=== PATIENT | male | born 1955 | race Caucasian/White ===

== ENCOUNTER 2018-11-25 13:37 | Emergency (ER) | payer BC ==
--- OUTSIDE RECORDS SUMMARY | 2018-11-25 13:39 | XMS REPORT | Clinical Summary ---
:1955 Author Organization [facility] Address [address] [place] [address] Care Team Providers Name Role Phone Brennan Groves MD Primary Care Provider Unavailable Allergies No Known Allergies Medications Medication Sig Dispensed Refills Start Date End Date Status amlodipine-benazepril Take 1 capsule 2 02/12/2016 Active (LOTREL) 10-20 mg per by mouth once capsule daily. hydrochlorothiazide Take 12.5 mg 2 02/12/2016 Active (MICROZIDE) 12.5 mg by mouth once capsule daily. metoprolol succinate XL Take 200 mg by 2 02/12/2016 Active (TOPROL-XL) 200 MG 24 hr mouth once tablet daily. dapagliflozin (FARXIGA) 10 Take 10 mg by 0 Active mg tablet mouth daily. DULAGLUTIDE (TRULICITY Inject under 0 Active SUBQ) the skin once a week. NON FORMULARY daily. Mens 0 Active alive SAW PALMETTO XTR/ZINC Take by mouth. 0 Active PICOLIN (SAW PALMETTO EXTRACT, W-ZINC, ORAL) ASCORBATE CALCIUM (VITAMIN Take by mouth. 0 Active C ORAL) ERGOCALCIFEROL, VITAMIN Take by mouth. 0 Active D2, (VITAMIN D2 ORAL) ACETAMINOPHEN (TYLENOL Take by mouth. 0 Active ORAL) Active Problems Problem Noted Date Multinodular goiter 05/27/2017 Social History Tobacco Use Types Packs/Day Years Used Date Never Smoker Smokeless Tobacco: Never Used Alcohol Use Drinks/Week oz/Week Comments Yes ocassionally Sex Assigned at Date Recorded Not on file Job Start Date Occupation Industry Not on file Not on file Not on file Travel History Travel Start Travel End No recent travel history available. Last Filed Vital Signs Not on file Plan of Treatment Health Maintenance Due Date Last Done Comments COLON CANCER SCREENING 2005 SHINGLES VACCINES (#1) 2005 INFLUENZA VACCINE 03/01/2019 Results Not on fileafter 11/24/2017 Insurance Payer Benefit Plan / Group Subscriber ID Type Phone Address BCBS BCBS CHOICE PPO/F[employer]ERAL EMPL PPO xxxxxxxxxxxxxxx PPO ([place]) [place] [address] Advance Directives Patient has advance care planning documents on file. For more information, please contact:Cordell Brown[address] [place] [phone]
[2018-11-25 14:37] LABS: Absolute Lymphocytes (CBC) 1.5 K/uL (0.7-4.9); Absolute Monocytes 1.3 K/uL (0.1-1.3); Absolute Neutrophil 5.9 K/uL (1.8-8.0); Basophils % 0.5 % (0-1.3); Eosinophils % 4.4 % (0-4.4); Hematocrit 46.6 % (39.6-49.0); Lymphocytes % 16.2 % (15.3-44.8); MPV 9.5 fL (7.6-11.3); RBC Red Blood Cell Count 5.39 M/uL (4.33-5.43)
[2018-11-25 14:48] LABS: Albumin 3.4 g/dL (3.4-5.0); Bilirubin Direct 0.2 mg/dL (0-0.2); Bilirubin Total 0.7 mg/dL (0.2-1.0); Potassium 3.5 mmol/L (3.5-5.1); Protein, Total 7.3 g/dL (6.4-8.2)
--- NOTE | 2018-11-25 16:49 | RAD REPORT ---
EXAM DESCRIPTION: CT - Abdomen Pelvis W Contrast - 11/25/2018 4:14 pm CLINICAL HISTORY: Abdominal pain. Diarrhea COMPARISON: None. TECHNIQUE: Computed axial tomography of the abdomen and pelvis was obtained. 100 cc Isovue-300 is ad ministered intravenously. Oral contrast was given. All CT scans are performed using dose optimization technique as appropriate and may include automated exposure control or mA/KV adjustment according to patient size. FINDINGS: Fatty liver The Spleen, pancreas, adrenals and right kidney appear unremarkable. The left kidney is small. It demonstrates opacification of contrast. This may be congenital anomaly The appendix is normal caliber. There is no evidence of diverticulitis The wall of a loop of proximal ileum/ distal jejunum is thickened. Mild dilatation of several small b owel loops. Mid and distal ileum normal caliber. Small amount of ascites IMPRESSION: Thickening of the wall of a loop of distal jejunum/proximal ileum probably indicating ei ther infection or inflammation. Mild small bowel dilatation probably representing an ileus. Partial small bowel obstruction although possible is considered less likely. If patient's symptoms persist followup abdominal plain film serie s would be recommended
--- NOTE | 2018-11-25 17:22 | EDPHYS ---
Physician Documentation [facility] Name: Juan Cruz Age: 63 yrs Sex: Male : 1955 Arrival Date: 11/25/2018 Time: 13:39 Bed 23 Private MD: ED Physician Saud Mckay HPI: 11/25 14:27 This 63 yrs old Male presents to ER via Ambulatory with complaints of kb Abdominal Pain. 14:27 The patient presents with abdominal pain in the left upper quadrant. Onset: The kb symptoms/episode began/occurred 4 day(s) ago. The symptoms do not radiate. Associated signs and symptoms: Pertinent positives: diarrhea, fever, nausea. The symptoms are described as constant. Modifying factors: The symptoms are alleviated by nothing, the symptoms are aggravated by nothing. Severity of pain: At its worst the pain was moderate in the emergency department the pain is unchanged. The patient has not experienced similar symptoms in the past. The patient has been recently seen at an urgent care, for similar complaints, and was sent to the [facility] Emergency Department for further evaluation. Pt reports abd pain, diarrhea, nausea and low grade fever since Tuesday. States he didn't get better so he went to to get checked out and they sent him here. Historical: - Allergies: 13:46 No Known Allergies; la1 - Home Meds: 13:46 Farxiga 5 mg oral tab 1 tab once daily [Active]; amlodipine-benazepril oral oral la1 [Active]; - PMHx: 13:46 Diabetes - NIDDM; Hypertension; la1 - PSHx: 13:46 Thyroidectomy; Cholecystectomy; la1 - Immunization history:: Adult Immunizations up to date. - Social history:: Smoking status: Patient/guardian denies using tobacco. - Ebola Screening: : No symptoms or risks identified at this time. ROS: 14:23 Cardiovascular: Negative for chest pain, palpitations, and edema, Respiratory: Negative kb for shortness of breath, cough, wheezing, and pleuritic chest pain, Back: Negative for injury and pain, : Negative for injury, bleeding, discharge, and swelling, MS/Extremity: Negative for injury and deformity, Skin: Negative for injury, rash, and discoloration, Neuro: Negative for headache, weakness, numbness, tingling, and seizure. 14:23 Constitutional: Positive for fever. 14:23 Abdomen/GI: Positive for abdominal pain, nausea, diarrhea, Negative for vomiting. Exam: 14:26 Constitutional: This is a well developed, well nourished patient who is awake, alert, kb and in no acute distress. Head/Face: Normocephalic, atraumatic. Chest/axilla: Normal chest wall appearance and motion. Nontender with no deformity. No lesions are appreciated. Cardiovascular: Regular rate and rhythm with a normal S1 and S2. No gallops, murmurs, or rubs. Normal PMI, no JVD. No pulse deficits. Respiratory: Lungs have equal breath sounds bilaterally, clear to auscultation and percussion. No rales, rhonchi or wheezes noted. No increased work of breathing, no retractions or nasal flaring. Back: No spinal tenderness. No costovertebral tenderness. Full range of motion. Skin: Warm, dry with normal turgor. Normal color with no rashes, no lesions, and no evidence of cellulitis. MS/ Extremity: Pulses equal, no cyanosis. Neurovascular intact. Full, normal range of motion. Neuro: Awake and alert, GCS 15, oriented to person, place, time, and situation. Cranial nerves II-XII grossly intact. Motor strength 5/5 in all extremities. Sensory grossly intact. Cerebellar exam normal. Normal gait. 14:26 Abdomen/GI: Inspection: abdomen appears normal, Bowel sounds: normal, in all quadrants, Palpation: soft, in all quadrants, mild abdominal tenderness, in the right lower quadrant and left lower quadrant, moderate abdominal tenderness, in the right upper quadrant and left upper quadrant. Vital Signs: 13:46 BP 117 / 81; Pulse 89; Resp 16; Temp 97.8; Pulse Ox 98% on R/A; Weight 104.33 kg; la1 Height 5 ft. 11 in. (180.34 cm); Pain 4/10; 16:53 BP 130 / 77; Pulse 80; Resp 17; Pulse Ox 99% on R/A; aj 13:46 Body Mass Index 32.08 (104.33 kg, 180.34 cm) la1 MDM: 13:48 Patient medically screened. 14:23 Data reviewed: vital signs, nurses notes. Data interpreted: Pulse oximetry: on room air kb is 98 %. Interpretation: normal. 17:16 Counseling: I had a detailed discussion with the patient and/or guardian regarding: the kb historical points, exam findings, and any diagnostic results supporting the discharge/admit diagnosis, lab results, radiology results, the need for outpatient follow up, a family practitioner, a general surgeon, a landfill attendant, to return to the emergency department if symptoms worsen or persist or if there are any questions or concerns that arise at home. Physician consultation: Dora Kwon MD was contacted at 17:18, in the emergency department to see patient at 17:18. Physician consultation: Jairo Ramires MD was contacted at 17:18, reviewed pt's CT scan. Special discussion: Based on the patient's Hx, exam, and Dx evaluation, there is no indication for emergent surgery or inpatient Tx. It is understood by the patient/guardian that if the Sx's persist or worsen they need to return immediately for re-evaluation. ED course: Pt does not want to be admitted. Dr Kwon and Dr Ramires discussed pt's condition and diagnostics. Dr Ramires does not see a SBO. Both agree that pt can be discharged to follow up with PCP. Will prescribe antibiotics and pt will take OTC laxatives. . 17:22 ED course: Pt does not want to take Cipro. Will prescribe Flagyl only.. kb 11/25 13:48 Order name: Basic Metabolic Panel; Complete Time: 14:52 kb 11/25 13:48 Order name: CBC with Diff; Complete Time: 14:52 kb 11/25 13:48 Order name: Hepatic Function; Complete Time: 14:52 kb 11/25 13:48 Order name: Lipase; Complete Time: 14:52 kb 11/25 13:48 Order name: CT Abd/Pelvis - W/Contrast; Complete Time: 16:52 kb 11/25 17:25 Order name: Urine Dipstick--Ancillary (enter results) eb 11/25 13:48 Order name: IV Saline Lock; Complete Time: 14:21 kb 11/25 13:48 Order name: Labs collected and sent; Complete Time: 14:21 kb Administered Medications: 17:30 Drug: Flagyl 500 mg Route: PO; aj 17:30 Follow up: Response: Medication administered at discharge. aj Disposition: 17:48 Co-signature as Attending Physician, Suad Mckay MD. rn Disposition: 11/25/18 17:22 Discharged to Home. Impression: Constipation, Generalized abdominal pain. - Condition is Stable. - Discharge Instructions: Constipation, Adult, [id number], Abdominal Pain, Adult, [id number]. - Prescriptions for Flagyl 500 mg Oral Tablet - take 1 tablet by ORAL route every 8 hours for 7 days; 21 tablet. - Medication Reconciliation Form, Thank You Letter, Antibiotic Education, Prescription Opioid Use form. - Follow up: Emergency Department; When: As needed; Reason: Worsening of condition. Follow up: Private Physician; When: 2 - 3 days; Reason: Recheck today's complaints, Continuance of care, Re-evaluation by your physician. Signatures: Dispatcher [employer] EDMS Rachael Alvarez, ABHI-C HOME [facility] LPN-Gardenia Haas RN Saud Nazario MD MD rn Attema, Lee, RN RN la1 Corrections: (The following items were deleted from the chart) 17:35 17:22 11/25/2018 17:22 Discharged to Home. Impression: Constipation; Generalized aj abdominal pain. Condition is Stable. Forms are Medication Reconciliation Form, Thank You Letter, Antibiotic Education, Prescription Opioid Use. Follow up: Emergency Department; When: As needed; Reason: Worsening of condition. Follow up: Private Physician; When: 2 - 3 days; Reason: Recheck today's complaints, Continuance of care, Re-evaluation by your physician. kb
--- NOTE | 2018-11-25 17:22 | ER ---
Nurse's Notes [facility] Name: Juan Cruz Age: 63 yrs Sex: Male : 1955 Arrival Date: 11/25/2018 Time: 13:39 Bed 23 Private MD: Diagnosis: Constipation;Generalized abdominal pain Presentation: 11/25 13:43 Presenting complaint: Patient states: Started with upper abd pain and diarrhea on la1 Tuesday, went to urgent care and they said I might have a blockage, pt denies vomiting. Transition of care: patient was not received from another setting of care. Onset of symptoms was November 25, 2018. Risk Assessment: Do you want to hurt yourself or someone else? Patient reports no desire to harm self or others. Initial Sepsis Screen: Does the patient meet any 2 criteria? No. Patient's initial sepsis screen is negative. Does the patient have a suspected source of infection? No. Patient's initial sepsis screen is negative. Care prior to arrival: None. 13:43 Method Of Arrival: Ambulatory la1 13:43 Acuity: ALEXANDER 3 la1 Historical: - Allergies: 13:46 No Known Allergies; la1 - Home Meds: 13:46 Farxiga 5 mg oral tab 1 tab once daily [Active]; amlodipine-benazepril oral oral la1 [Active]; - PMHx: 13:46 Diabetes - NIDDM; Hypertension; la1 - PSHx: 13:46 Thyroidectomy; Cholecystectomy; la1 - Immunization history:: Adult Immunizations up to date. - Social history:: Smoking status: Patient/guardian denies using tobacco. - Ebola Screening: : No symptoms or risks identified at this time. Screenin:56 Abuse screen: Denies threats or abuse. Denies injuries from another. Nutritional aj screening: No deficits noted. Tuberculosis screening: No symptoms or risk factors identified. Fall Risk None identified. Assessment: 14:22 Reassessment: CT notified that pt finished drinking oral contrast. iw 14:56 General: Appears in no apparent distress. comfortable, Behavior is calm, cooperative, aj appropriate for age. Pain: Complains of pain in abdomen. Neuro: Level of Consciousness is awake, alert, obeys commands, Oriented to person, place, time, situation, Appropriate for age. Respiratory: Airway is patent Respiratory effort is even, unlabored, Respiratory pattern is regular, symmetrical. GI: Abdomen is non-distended, Reports lower abdominal pain, upper abdominal pain. Derm: Skin is intact, is healthy with good turgor, Skin is pink, warm \\T\\ dry. normal. 17:20 Reassessment: Patient appears in no apparent distress at this time. No changes from aj previously documented assessment. Patient and/or family updated on plan of care and expected duration. Pain level reassessed. Patient is alert, oriented x 3, equal unlabored respirations, skin warm/dry/pink. Vital Signs: 13:46 BP 117 / 81; Pulse 89; Resp 16; Temp 97.8; Pulse Ox 98% on R/A; Weight 104.33 kg; la1 Height 5 ft. 11 in. (180.34 cm); Pain 4/10; 16:53 BP 130 / 77; Pulse 80; Resp 17; Pulse Ox 99% on R/A; aj 13:46 Body Mass Index 32.08 (104.33 kg, 180.34 cm) la1 ED Course: 13:39 Patient arrived in ED. as 13:44 Triage completed. la1 13:46 Arm band placed on right wrist. la1 13:47 Rachael Alvarez FNP-C is [facility]. kb 13:47 Saud Mckay MD is Attending Physician. kb 13:48 Gardenia Talbot, AMNA is Primary Nurse. aj 14:22 Initial lab(s) drawn, by me, sent to lab. Inserted saline lock: 22 gauge in left iw antecubital area, using aseptic technique. Blood collected. 14:56 Patient has correct armband on for positive identification. aj 16:14 CT Abd/Pelvis - W/Contrast In Process Unspecified. EDMS 17:31 No provider procedures requiring assistance completed. IV discontinued, intact, aj bleeding controlled, No redness/swelling at site. Pressure dressing applied. Administered Medications: 17:30 Drug: Flagyl 500 mg Route: PO; aj 17:30 Follow up: Response: Medication administered at discharge. aj Outcome: 17:22 Discharge ordered by . kb 17:31 Discharged to home ambulatory. aj 17:31 Condition: good 17:31 Discharge instructions given to patient, Instructed on discharge instructions, follow up and referral plans. medication usage, Demonstrated understanding of instructions, follow-up care, medications, Patient requested this nurse release a copy of his CT report. Patient informed that this nurse could not give copies of radiology reports but that they would be available in Medical Records on Tuesday. Patient then asked again if I could give him his CT report if he wrote a piece of paper releasing it, I informed patient that I could not. Patient stated, "That's why people don't want to come here." Prescriptions given X 1. 17:35 Patient left the ED. aj Signatures: Dispatcher [employer] Rachael Calle, ABIH-C ABHI-Gardenia Haas, RN RN Gladys Torres Irene, RN RN iw Attema, Lee RN RN la1
[2018-11-25 17:34] LABS: Urine Blood NEGATIVE (NEG); Urine Glucose 1+ (NEG); Urine Protein 1+ (NEG); Urine pH 5.5 (5.0-7.0)
[2018-11-25] MEDS ORDERED: metroNIDAZOLE 500 MG TABLET ONE (17:35)
== END 2018-11-25 17:35 | disposition home or self-care (01) ==
LOC: ER 13:37
DX: K59.00 Constipation, unspecified (principal); R10.84 Generalized abdominal pain; I10 Essential (primary) hypertension; E11.9 Type 2 diabetes mellitus without complications
CPT/HCPCS: 36415; 74177; 80048; 80076; 81003; 83690; 85025; 99284; Q9967

== ENCOUNTER 2019-12-27 16:59 | Emergency (ER) | payer BC ==
[2019-12-27] MEDS ORDERED: BUPIVACAINE 0.5% PF 10 ML VIAL ONE (17:31)
[2019-12-27] MEDS ORDERED: TETANUS & DIPHTHERIA TOX,ADULT 0.5 ML VIAL ONE (17:31)
[2019-12-27 19:06] VITALS: TEMP 98
[2019-12-27 19:08] VITALS: O2SAT 100
[2019-12-27 19:09] VITALS: BP 140/95
--- OUTSIDE RECORDS SUMMARY | 2019-12-27 21:14 | XMS REPORT | Clinical Summary ---
:1955 Author Organization [facility] Address [address] [place] [address] Care Team Providers Name Role Phone Palmer Castellano MD Primary Care Provider Allergies No Known Allergies Medications Medication Sig Dispensed Refills Start End Status Date Date amlodipine-benazepril Take 1 capsule 2 02/12/20 Active (LOTREL) 10-20 mg per by mouth once 16 capsule daily. metoprolol succinate Take 200 mg by 2 02/12/20 Active XL (TOPROL-XL) 200 MG mouth once 16 24 hr tablet daily. dapagliflozin Take 10 mg by 0 Ac tive (FARXIGA) 10 mg tablet mouth daily. NON FORMULARY daily. Mens 0 Acti ve alive ASCORBATE CALCIUM Take by mouth. 0 Active (VITAMIN C ORAL) ERGOCALCIFEROL, Take by mouth. 0 Active VITAMIN D2, (VITAMIN D2 ORAL) ACETAMINOPHEN (TYLENOL Take by mouth. 0 Active ORAL) tamsulosin (FLOMAX) Take 0.4 mg by 0 Active 0.4 mg capsule mouth daily. levothyroxine Take 150 mcg by 0 Active (SYNTHROID, LEVOXYL) mouth daily. 150 mcg tablet OZEMPIC 0.25 mg or 0.5 0.5 MG 4 12/21/19 Active mg(2 mg/1.5 mL) pen DIRECTED WEEKLY 19 injector SUBCUTANEOUS 30 DAYS gabapentin (NEURONTIN) Take 300 mg by 0 Active 300 mg mouth. As capsuleIndications: needed Restless leg syndrome pramipexole (MIRAPEX) Take 0.25 mg by 0 Active 0.25 MG mouth 3 (three) tabletIndications: times a day. Restless leg syndrome calcium cit/Mgox/vit Take by mouth. 0 Active D3/B6/min (CHACTHO-MUY-PTB H4-Q9-[id number] ORAL)Indications: Other fatigue testosterone Place 50 mg on 0 Ac tive (ANDROGEL) 1 % (25 the skin daily. mg/2.5gram) gel in packetIndications: Other fatigue hydrochlorothiazide Take 12.5 mg by 2 02/12/2012/30/2 Discontinued (MICROZIDE) 12.5 mg mouth once 16 019 (Med List capsule daily. Cleanup) DULAGLUTIDE (TRULICITY Inject under 0 11/30 Discontinued SUBQ) the skin once a 020 week. SAW PALMETTO XTR/ZINC Take by mouth. 0 06/02 Discontinued PICOLIN (SAW PALMETTO 019 (Med List EXTRACT, W-ZINC, ORAL) Cleanup) Active Problems Problem Noted Date Family history of thyroid cancer 09/05/2019 Postoperative hypothyroidism 06/06/2017 Overview: Managed by Dr. 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 Rios - on ozempic and farxiga - seeing Dr. Rios next week Essential hypertension Overview: on lotrel and amlodipine - Sees Cardiology - Dr. Vergara - does y early checks: has had stress, echo, and vascular test done Esophageal stricture Overview: Dr. Caba - EGD - Dyslipidemia Overview: Worsened RLS; not on meds because he sta elvia he doesn't like it; per and patient the cholesterol levels were elevated and was Rx meds but he didn't take it. Restless leg syndrome Overview: on mirapex and gabapentin - doesn't like the gabapentin because of the way he feels in the AM. Sleep apnea, obstructive Overview: not using CPAP; states he can't use it Had a home sleep study done Encounters Date Type Specialty Care Team Description 12/05/2019 Telemedicine Gastroenterology Yang Harris Dysph agia, unspecified MD type (Primary D x) 12/03/2019 Travel 11/20/2019 Telephone Lab Diane Melvin MYCHAL 11/13/2019 Telemedicine Internal Medicine Beba Castellano Suspecte d Covid-19 Virus Infection (Primary Dx); MD Palmer Dry cough; Viral illness; Type 2 diabetes mellitus with hyperglycemia, without long-term current use of insulin (HCC); Essential hyper tension 11/13/2019 Telephone Internal Medicine Beba Castellano MD 11/12/2019 Travel 11/12/2019 Telephone Internal Medicine Beba Castellano MD 09/05/2019 Office Visit Internal Medicine Beba Castellano Other fa tigue (Primary Dx); MD Palmer Dysphagia, unsp ecified type; Type 2 diabetes mellitus with hyperglycemia, without long-term current use of insulin (HCC); Sleep apnea, ob structive; Restless leg sy ndrome; Prostate disord er with lower urinary tract symptoms; Postoperative h ypothyroidism; Follicular neop lasm of thyroid; Essential hyper tension; Esophageal stri cture; Dyslipidemia 01/09/2019 Office Visit Family Medicine Delia Cade opathy (Primary Dx); Michele Villa, Family his tory of thyroid cancer DO after 12/26/2018 Family History Medical History Relation Name Comments Diabetes Brother Cancer Father Heart disease Father Cancer Sister Diabetes Sister Relation Name Status Comments Brother Alive Father (Age 87) Maternal Grandfather Maternal Grandmother Mother Paternal Grandfather Paternal Grandmother Sister Social History Tobacco Use Types Packs/Day Years Used Date Never Smoker Smokeless Tobacco: Never Used Alcohol Use Drinks/Week oz/Week Comments Yes ocassionally Sex Assigned at Date Recorded Not on file Job Start Date Occupation Industry Not on file Not on file Not on file Travel History Travel Start Travel End No recent travel history available. COVID-19 Exposure Response Date Recorded In the last month, have you been in contact Unable to assess 12/03/2019 10:58 AM CDT with someone who was confirmed or suspected to have Coronavirus / COVID-19? Last Filed Vital Signs Vital Sign Reading Time Taken Comments Blood Pressure 146/96 11/13/2019 9:39 AM CDT Pulse 68 11/13/2019 9:39 AM CDT Temperature 37.3 C (99.1 F) 11/13/2019 9:39 AM CDT Respiratory Rate 20 01/09/2019 2:52 PM CDT Oxygen Saturation 97% 09/05/2019 7:58 AM GROUP MANAGING DIRECTOR Inhaled Oxygen Concentration - - Weight 99.8 kg (220 lb) 09/05/2019 7:58 AM GROUP MANAGING DIRECTOR Height 177.8 cm (5' 10") 09/05/2019 7:58 AM GROUP MANAGING DIRECTOR Body Mass Index 31.57 09/05/2019 7:58 AM GROUP MANAGING DIRECTOR Plan of Treatment Date Type Specialty Care Team Description 01/02/2020 Office Visit Internal Medicine Beba Castellano MD [address] [facility] [address] [place], [place] [address] Health Maintenance Due Date Last Done Comments DIABETIC RETINAL EYE EXAM 1955 DIABETIC FOOT EXAM 1965 URINE MICROALBUMIN 1965 SHINGLES VACCINES (#1) 2005 INFLUENZA VACCINE 03/01/2020 COLONOSCOPY SCREENING 01/09/2026 01/10/2016 Procedures Procedure Name Priority Date/Time Associated Comments Diagnosis RESPIRATORY PATHOGEN Routine 11/13/2019 1:52 Other general Re sults for this PANEL PM CDT symptoms and signs procedure are in the results section. COVID BIOREF (NCOVB) Routine 11/13/2019 1:52 Suspected Covid- 19 Results for this PM CDT Virus Infection procedure ar e in the results section. after 12/26/2018 Results Respiratory pathogen panel (11/13/2019 1:52 PM CDT) Adenovirus PCR Not Detected [facility] Comment: SPIRITISM Specimen Information HOSPITAL Specimen Source: Nares Specimen Site: Not specified Coronavirus HKU1 PCR Not Detected [facility] Coronavirus NL63 PCR Not Detected [facility] Coronavirus 229E PCR Not Detected [facility] Coronavirus OC43 PCR Not Detected [facility] Human metapneumovirus Not Detected [facility] Human Not Detected [facility] rhinovirus/enterovirus [facility] Influenza A PCR Not Detected [facility] Influenza A/H1 PCR Not Reported [facility] Influenza A/H3 PCR Not Reported [facility] Influenza A/H1-2009 PCR Not Reported [facility] Influenza B PCR Not Detected [facility] Parainfluenza virus 1 Not Detected [facility] Parainfluenza virus 2 Not Detected [facility] Parainfluenza virus 3 Not Detected [facility] Parainfluenza virus 4 Not Detected [facility] Respiratory syncytial Not Detected [facility] virus PCR [facility] Bordetella pertussis Not Detected [facility] Bordetella Not Detected [facility] parapertussis PCR [facility] Chlamydia pneumoniae Not Detected [facility] Mycoplasma pneumoniae Not Detected [facility] Influenza A no sub type Not Reported [facility] Specimen Nares - Not specified Performing Organization Address [facility] Phone Number [facility] DEPARTMENT OF PATHOLOGY AND [address] [place] [address] [phone] GENOMIC MEDICINE [address] [address] COVID BioRef (NCOVB) (11/13/2019 1:52 PM CDT) [facility] COVID BioRef Not Detected Not Detected [facility] (NCOVB) Comment: Source Nasopharyngeal Swab Testing performed at [facility] [address] [place] [address] NOTE: Please consider re-collection of a new specimen, if clinically indicated. NOTE: The COVID-19 assay has been cleared by the U.S. Food and Drug Administration under the Emergency Use Author ization (EUA). [facility] is designated as a high complexity laboratory by the Clinical Laboratory Improve ment Amendments of 1988(CLIA) and is qualified to perform this t est. ASSAY INFORMATION: Real Time RT-PCR Specimen Serum Performing Organization Address City/[facility]ode Phone Number [facility] DEPARTMENT OF PATHOLOGY [address] [place] [phone] [facility] [address] [place] [address] after 12/26/2018 Advance Directives For more information, please contact: [phone] Type Date Recorded Patient Record Center Specialist Explanati on Advance Directives, Living Will and Medical Power of Service Worker Helper
--- OUTSIDE RECORDS SUMMARY | 2019-12-27 21:14 | XMS REPORT ---
:1955 Author Organization [facility] t Address [address] [place] [address] Care Team Providers Name Role Phone Palmer Castellano MD Primary Care Physician Steven CRUZ Attending Clinician Olegario HORTA Attending Clinician Unavailable Palmer Castellano MD Attending Clinician Daisy Cade DO Attending Clinician [phone] Payers Payer Name Policy Type Policy Number Effective Date Expiration Date Jordin nuñez [id number] xxxxxxxxxxxxxxx 2012 [place] CHOICE 00:00:00 [facility] PPO/FEDERAL EMPL PPOxxxxxxxxxxx [id number] [id number] Problems Condition Condition Condition Status Onset Resolution Last Treating Co mments Source Name Details Category Date Date Treatment Clinician Date Family Family Disease Active [place] history of history of 2-05 Me thodi thyroid thyroid 00:00: st cancer cancer 00 Postoperat Postoperat Disease Active 2016-08 Overview : [place] timmy timmy 1-06 Managed [facility] hypothyroi hypothyroi 00:00: by Dr. penny dism dism 00 Blanca - on levothyro xine 150 mcg Prostate Prostate Disease Active 2016-08 Overview: [place] disorder disorder 0-27 on flomax Met hodi with lower with lower 00:00: - flow st urinary urinary 00 has been tract tract better symptoms symptoms and helped with some nocturia. Follicular Follicular Disease Active 2015-08 [place] neoplasm neoplasm 2-29 Method i of thyroid of thyroid 00:00: st 00 Multinodul Multinodul Disease Active 2015-08 Overview : [place] ar goiter ar goiter 1-30 S/p Meth alla 00:00: thyroidec st 00 domingo Type 2 Type 2 Disease Active Overview: Re esteban diabetes diabetes per Dr. Harjinder rooney mellitus mellitus [facility]- with with on hyperglyce hyperglyce ozempic leyla, leyla, and without without farxiga- long-term long-term seeing current current DrElo use of use of [facility] insulin insulin next week Essential Essential Disease Active Overview: [place] hypertensi hypertensi on lotrel [facility]i on on and st amlodipin e- Sees Cardiolog y - Dr. Vergara - patel yearly checks: has had stress, echo, and vascular test done Esophageal Esophageal Disease Active Overview : [place] stricture stricture Dr. Rosales lees - EGD - st Dyslipidem Dyslipidem Disease Active Overview : [place] ia ia Worsened [facility] RLS; not st on meds because he states he doesn't like it; per and patient the cholester ol levels were elevated and was Rx meds but he didn't take it. Restless Restless Disease Active Overview: [place]via leg leg on [facility] syndrome syndrome mirapex st and gabapenti n - doesn't like the gabapenti n because of the way he feels in the AM. Sleep Sleep Disease Active Overview: Re esteban apnea, apnea, not using [facility] obstructiv obstructiv CPAP; st e e states he can't use itHad a home sleep study done Allergies, Adverse Reactions, Alerts This patient has no known allergies or adverse reactions. Family History Family Member Diagnosis Comments Start Date Stop Date Source Natural brother Diabetes [place] M ethodist Natural father Cancer [place] Me thodist Natural father Heart disease [place] Tenriism Natural sister Cancer [place] Me thodist Natural sister Diabetes [place] Me thodist Social History Social Habit Start Date Stop Date Quantity Comments Source Sex Assigned At [place] [facility] Exposure to Unable to assess [place] SARS-CoV-2 [facility] (event) Alcohol intake 2019-12-05 2019-12-05 Current drinker of Martin vega 00:00:00 00:00:00 alcohol (finding) [facility] st Alcohol Comment 2016-04-27 2016-04-27 ocassionally [place] 00:00:00 00:00:00 [facility] Smoking Status Start Date Stop Date Source Never smoker Cordell Souza t Medications Ordered Filled Start Stop Current Ordering Indication Dosage Frequency Signature Comments Components Source Medication Medication Date Date Medication? Clinician (SIG) Name Name dapaglifloz 2020-0 Yes 10mg QD Take 10 mg Landa in -06 by mouth [facility] (FARXIGA) 09:22: daily. st 10 mg 40 tablet NON 2020-0 Yes QD daily. [place]anda FORMULARY -06 Mens alive Meth alla 09:22: st 40 ASCORBATE 2020-0 Yes Take by All on CALCIUM 5-06 mouth. [facility] (VITAMIN C 09:22: st ORAL) 40 ERGOCALCIFE 2020-0 Yes Take by Jillian morris ROL, 5-06 mouth. [facility] VITAMIN D2, 09:22: st (VITAMIN D2 40 ORAL) ACETAMINOPH 2020-0 Yes Take by Jillian morris EN (TYLENOL -06 mouth. Method i ORAL) 09:22: st 40 tamsulosin 2020-0 Yes .4mg QD Take 0.4 Jillian morris (FLOMAX) 5-06 mg by [facility] 0.4 mg 09:22: mouth st capsule 40 daily. levothyroxi 2020-0 Yes 150ug QD Take 150 [place] ne 5-06 mcg by Methodjaime (SYNTHROID, 09:22: mouth st LEVOXYL) 40 daily. 150 mcg tablet gabapentin 2020-0 Yes Restless 300mg Take 300 Cordell (NEURONTIN) 5-06 leg mg by Methodi 300 mg 09:22: syndrome mouth. As st capsule 40 needed pramipexole 2020-0 Yes Restless .25mg [id number] Take 0.25 Landa (MIRAPEX) 5-06 leg [id number] mg by Met henri 0.25 MG 09:22: syndrome 3D mouth 3 st tablet 40 (three) times a day. calcium 2020-0 Yes Other Take by Re n cit/Mgox/vi 5-06 fatigue mouth. Met henri t D3/B6/min 09:22: st (CALCIUM-MA 40 G-VIT B6-D3-DIRECTOR OF PREMIUM SEAT SALES ALS ORAL) testosteron 2020-0 Yes Other 50mg QD Place 50 [place] e 5-06 fatigue mg on the Method[facility] (ANDROGEL) 09:22: skin st 1 % (25 40 daily. mg/2.5gram) gel in packet DULAGLUTIDE 2020-0 2020- No Q7D Inject Jillian ston (TRULICITY 2-05 under the Met henri SUBQ) 08:00: 00:[address] 04 :00 a week. SAW 2018- No Take by Cordell PALMETTO 6 06-11 mouth. [facility] XTR/ZINC 14:57: 00:00 st PICOLIN 55 :00 (MAHOGANY SORIA EXTRACT, W-ZINC, ORAL) OZEMPIC Yes 0.5 MG [place] on 0.25 mg or 5-22 DIRECTED Metho di 0.5 mg(2 00:00: WEEKLY st mg/1.5 mL) 00 SUBCUTANEO pen US 30 DAYS injector amlodipine- Yes 1{capsu QD Take 1 [place] benazepril 7-14 le} capsule by Met álvarez (LOTREL) 00:00: mouth once st 10-20 mg 00 daily. per capsule metoprolol Yes 200mg QD Take 200 [place] succinate 7-14 mg by [facility] XL 00:00: mouth once st (TOPROL-XL) 00 daily. 200 MG 24 hr tablet hydrochloro 2018- No 12.5mg QD Take 12.5 Landa thiazide 7-14 06-11 mg by [facility] (MICROZIDE) 00:00: 00:[address] 12.5 mg 00 :00 daily. capsule Vital Signs Vital Name Observation Time Observation Value Comments Source Systolic blood 2019-11-13 09:39:00 146 mm[Hg] Rogre[place] n [facility] pressure Diastolic blood 2019-11-13 09:39:00 96 mm[Hg] All on [facility] pressure Heart rate 2019-11-13 09:39:00 68 /min Cordell Brown Body temperature 2019-11-13 09:39:00 37.28 Ceci Roger Brown Body height 2019-09-05 07:58:00 177.8 cm Cordell Brown Body weight 2019-09-05 07:58:00 99.791 kg Cordell Brown BMI 2019-09-05 07:58:00 31.57 kg/m2 Cordell Brown Oxygen saturation in 2019-09-05 07:58:00 97 /min Cordell Brown Arterial blood by Pulse oximetry Respiratory rate 2019-01-09 14:52:00 20 /min [place] [facility] Procedures Procedure Date / Time Performed Performing Clinician Shonna CHAUDHRY BIOREF (NCOVB) 2019-11-13 13:52:00 Alejandra Castellanonila [facility] RESPIRATORY PATHOGEN 2019-11-13 13:52:00 Alejandra Castellano usnila [facility] PANEL Plan of Care Planned Activity Planned Date Details Comments Source Future Scheduled 2026-01-09 COLONOSCOPY SCREENING [place] [facility] Test 00:00:00 [code = COLONOSCOPY SCREENING] Future Scheduled 2020-03-01 INFLUENZA VACCINE [place] [facility] Test 00:00:00 [code = INFLUENZA VACCINE] Future Scheduled 2005 SHINGLES VACCINES (#1) [place] [facility] Test 00:00:00 [code = SHINGLES VACCINES (#1)] Future Scheduled 1965 DIABETIC FOOT EXAM [place] [facility] Test 00:00:00 [code = DIABETIC FOOT EXAM] Future Scheduled 1965 URINE MICROALBUMIN [place] [facility] Test 00:00:00 [code = URINE MICROALBUMIN] Future Scheduled 1955 DIABETIC RETINAL EYE Jillian ston [facility] Test 00:00:00 EXAM [code = DIABETIC RETINAL EYE EXAM] Encounters Start End Encounter Admission Attending Care Care Encounter Source Date/Time Date/Time Type Type Clinicians Facility Department ID 2019-12-05 2019-12-05 Outpatient [facility] [id number] [place] 00:00:00 00:00:00 [place] [address] 2019-11-13 2019-11-13 Outpatient [facility] [id number] [place] 00:00:00 00:00:00 ALEJANDRA [address] 2019-11-13 2019-11-13 Outpatient [facility] [id number] [place] 00:00:00 00:00:00 ALEJAN[address]A [address] Results This patient has no known results.
--- NOTE | 2019-12-31 16:11 | EDPHYS ---
Physician Documentation [facility] Name: Juan Cruz Age: 64 yrs Sex: Male : 1955 Arrival Date: 12/27/2019 Time: 17:02 Bed 20 Private MD: ED Physician Tahir Schofield HPI: 12/26 17:08 This 64 yrs old Male presents to ER via Ambulatory with complaints of jmm Laceration to Finger. 17:08 The complaints affect the palmar aspect of distal phalanx of right index finger. Onset: jmm The symptoms/episode began/occurred acutely, just prior to arrival. Modifying factors: The symptoms are alleviated by nothing, the symptoms are aggravated by nothing. This is a 64 year old male with a history of dm, htn that presents to the ED with complaints of right wnd finger pain after getting caught in a jaime. Denies other injury. Not UTD on tetanus immunizations. . Historical: - Allergies: 17:07 No Known Allergies; ll1 - PMHx: 17:07 Diabetes - NIDDM; Hypertension; ll1 - PSHx: 17:07 Thyroidectomy; Cholecystectomy; ll1 - Immunization history:: Last tetanus immunization: > 10 years ago. - Social history:: Patient/guardian denies using alcohol, street drugs, tobacco products, Smoking status: Patient denies any tobacco usage or history of. ROS: 17:08 Constitutional: Negative for fever, chills, and weight loss, Cardiovascular: Negative jmm for chest pain, palpitations, and edema, Respiratory: Negative for shortness of breath, cough, wheezing, and pleuritic chest pain. 17:08 MS/extremity: Positive for laceration. 17:08 Skin: Positive for laceration(s). 17:08 All other systems are negative. Exam: 17:08 Constitutional: This is a well developed, well nourished patient who is awake, alert, jmm and in no acute distress. Head/Face: atraumatic. Eyes: EOMI, no conjunctival erythema appreciated ENT: Moist Mucus Membranes Neck: Trachea midline, Supple Chest/axilla: Normal chest wall appearance and motion. Cardiovascular: Regular rate and rhythm. No edema appreciated Respiratory: Normal respirations, no respiratory distress appreciated Abdomen/GI: Non distended, soft Back: Normal ROM 17:08 Musculoskeletal/extremity: FROM appreciated to the right 2nd finger< < 2 sec dist cap refill, (+) NVI. 17:08 Skin: avulsion noted to the 2nd distal phalanx pad. 17:08 Neuro: Orientation: is normal, Mentation: is normal, Memory: is normal. 17:08 Psych: Behavior/mood is pleasant, cooperative. Vital Signs: 17:05 BP 147 / 102; Pulse 73; Resp 18; Temp 98.0; Pulse Ox 98% ; Pain 8/10; ll1 17:57 BP 143 / 86; Pulse 68; Resp 15 S; Pulse Ox 100% on R/A; ca1 18:30 BP 140 / 95; Pulse 71; Resp 16 S; Pulse Ox 100% on R/A; ca1 MDM: 17:08 [facility] 18:43 Data reviewed: vital signs, nurses notes. Counseling: I had a detailed discussion with mandy the patient and/or guardian regarding: the historical points, exam findings, and any diagnostic results supporting the discharge/admit diagnosis, the need for outpatient follow up, to return to the emergency department if symptoms worsen or persist or if there are any questions or concerns that arise at home. Administered Medications: 17:25 Drug: Marcaine (0.5 %) 10 ml {Note: by PA. 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 Exp: ca1 09/14/2021. Lot #: [id number]. } Route: IM; Site: right deltoid; 18:00 Follow up: Response: No adverse reaction ca1 Disposition: 12/27/19 18:43 Discharged to Home. Impression: Finger laceration. - Condition is Stable. - Discharge Instructions: Laceration Care, Adult. - Prescriptions for Cephalexin 500 mg Oral Capsule - take 1 capsule by ORAL route every 6 hours for 10 days; 40 capsule. - Medication Reconciliation Form, Thank You Letter, Antibiotic Education, Prescription Opioid Use form. - Follow up: Private Physician; When: 2 - 3 days; Reason: Recheck today's complaints, Continuance of care, Re-evaluation by your physician. Follow up: Javi Toure MD; When: 2 - 3 days; Reason: Recheck today's complaints, Continuance of care, Re-evaluation by your physician. Addendum: 12/29/2019 07:56 Co-signature as Attending Physician, Tahir Schofield MD I agree with the assessment and k dr plan of care. Signatures: Tahir Schofield MD MD kdr Mickail, Joel, PA PA [facility] Sonia Vasquez, RN RN ca1 Linda Alva RN RN ll1 Corrections: (The following items were deleted from the chart) 12/26 18:44 18:43 12/27/2019 18:43 Discharged to Home. Impression: Finger laceration. Condition is jmm Stable. Forms are Medication Reconciliation Form, Thank You Letter, Antibiotic Education, Prescription Opioid Use. Follow up: Private Physician; When: 2 - 3 days; Reason: Recheck today's complaints, Continuance of care, Re-evaluation by your physician. [facility] 18:57 18:44 12/27/2019 18:43 Discharged to Home. Impression: Finger laceration. Condition is ca1 Stable. Discharge Instructions: Laceration Care, Adult. Prescriptions for Cephalexin 500 mg Oral Capsule - take 1 capsule by ORAL route every 6 hours for 10 days; 40 capsule. and Forms are Medication Reconciliation Form, Thank You Letter, Antibiotic Education, Prescription Opioid Use. Follow up: Private Physician; When: 2 - 3 days; Reason: Recheck today's complaints, Continuance of care, Re-evaluation by your physician. Follow up: Javi Toure; When: 2 - 3 days; Reason: Recheck today's complaints, Continuance of care, Re-evaluation by your physician. [facility]
--- NOTE | 2019-12-31 16:11 | ER ---
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 ll1 Reports avulsion-like laceration to end of finger. Bandage in place, bleeding controlled. Coronavirus screen: Proceed with normal triage. Patient denies a cough. Patient denies shortness of breath or difficulty breathing. Patient denies measured and/or subjective temperature greater than 100.4F prior to today's visit. Patient denies travel on a cruise ship or to a country the [facility] currently lists as an affected area. Patient denies contact with known and/or suspected case of COVID-19. Ebola Screen: Patient denies travel to an Ebola-affected area in the 21 days before illness onset. Initial Sepsis Screen: Does the patient meet any 2 criteria? No. Patient's initial sepsis screen is negative. Does the patient have a suspected source of infection? No. Patient's initial sepsis screen is negative. Risk Assessment: Do you want to hurt yourself or someone else? Patient reports no desire to harm self or others. Onset of symptoms was December 27, 2019. 17:05 Method Of Arrival: Ambulatory ll1 17:05 Acuity: ALEXANDER 4 ll1 Historical: - Allergies: 17:07 No Known Allergies; ll1 - PMHx: 17:07 Diabetes - NIDDM; Hypertension; ll1 - PSHx: 17:07 Thyroidectomy; Cholecystectomy; ll1 - Immunization history:: Last tetanus immunization: > 10 years ago. - Social history:: Patient/guardian denies using alcohol, street drugs, tobacco products, Smoking status: Patient denies any tobacco usage or history of. Screenin:12 Abuse screen: Denies threats or abuse. Denies injuries from another. Nutritional ca1 screening: No deficits noted. Tuberculosis screening: No symptoms or risk factors identified. Fall Risk None identified. Assessment: 17:12 General: Appears in no apparent distress. comfortable, Behavior is calm, cooperative, ca1 appropriate for age. Pain: Complains of pain in palmar aspect of distal phalanx of right index finger. Neuro: Level of Consciousness is awake, alert, obeys commands, Oriented to person, place, time, situation. Derm: Skin is healthy with good turgor, Skin is pink, warm \T\ dry. Musculoskeletal: Circulation, motion, and sensation intact. Capillary refill < 3 seconds. Injury Description: Laceration sustained to palmar aspect of distal phalanx of right index finger is clean, 0.5 to 2.5 cm long, was sustained 30-60 minutes ago. no active bleeding noted at this time. 18:30 Reassessment: Patient appears in no apparent distress at this time. Patient is alert, ca1 oriented x 3, equal unlabored respirations, skin warm/dry/pink. CALVIN Hernandez at bedside. Vital Signs: 17:05 BP 147 / 102; Pulse 73; Resp 18; Temp 98.0; Pulse Ox 98% ; Pain 8/10; ll1 17:57 BP 143 / 86; Pulse 68; Resp 15 S; Pulse Ox 100% on R/A; ca1 18:30 BP 140 / 95; Pulse 71; Resp 16 S; Pulse Ox 100% on R/A; ca1 ED Course: 17:02 Patient arrived in ED. bp1 17:07 Triage completed. ll1 17:07 Arm band placed on Patient placed in an exam room, on a stretcher. ll1 17:08 Sonia Vasquez, AMNA is Primary Nurse. ca1 17:08 David Portillo PA is PHCP. [facility] 17:08 Tahir Schofield MD is Attending Physician. [facility] 17:12 Patient has correct armband on for positive identification. Bed in low position. Call ca1 light in reach. Side rails up X 1. Pulse ox on. NIBP on. 17:12 Patient did not have IV access during this emergency room visit. ca1 18:31 Assist provider with laceration repair on palmar aspect of distal phalanx of right ca1 index finger that was 2.5 cm. or less using sutures. Set up tray. Performed by David SIMPSON Patient tolerated well. 18:44 Javi Toure MD is Referral Physician. 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 Exp: ca1 09/14/2021. Lot #: [id number]. } Route: IM; Site: right deltoid; 18:00 Follow up: Response: No adverse reaction ca1 Outcome: 18:43 Discharge ordered by MD. galvan 18:55 Discharged to home ambulatory. ca1 18:55 Condition: stable 18:55 Discharge instructions given to patient, Instructed on discharge instructions, follow up and referral plans. medication usage, wound care, Demonstrated understanding of instructions, follow-up care, medications, wound care, Prescriptions given X 1. 18:57 Patient left the ED. ca1 Signatures: David Portillo PA PA jmm Acob, Cheryl RN RN ca1 iLnda Alva RN RN ll1 Tuyet Sousa [facility] Corrections: (The following items were deleted from the chart) 18:32 18:31 Assist provider with laceration repair on palmar aspect of distal phalanx of ca1 right index finger that was 2.5 cm. or less using sutures. Set up tray. Performed by David SIMPSON ca1
== END 2019-12-27 18:57 | disposition home or self-care (01) ==
LOC: ER 16:59
PROC: 0JQJ0ZZ Repair Right Hand Subcutaneous Tissue and Fascia, Open Approach (ICD-10-PCS; principal; 2019-12-27)
DX: S61.210A Laceration without foreign body of right index finger without damage to nail, initial encounter (principal); W29.8XXA Contact with other powered hand tools and household machinery, initial encounter; Y93.9 Activity, unspecified; Y92.9 Unspecified place or not applicable; Z23 Encounter for immunization; I10 Essential (primary) hypertension
CPT/HCPCS: 90471; 90714; 99284

== ENCOUNTER 2020-01-05 10:59 | Emergency (ER) | payer BC ==
--- OUTSIDE RECORDS SUMMARY | 2020-01-05 11:02 | XMS REPORT | Continuity of Care Document ---
:1955 Author Organization [facility] t Address [address] [place] [address] Care Team Providers Name Role Phone Palmer Castellano MD Primary Care Physician Palmer Castellano MD Attending Clinician Steven CRUZ Attending Clinician Olegario HORTA Attending Clinician Unavailable Daisy Cade DO Attending Clinician [phone] Payers Payer Name Policy Type Policy Number Effective Date Expiration Date Jordin nuñez [id number] xxxxxxxxxxxxxxx 2012 [facility] CHOICE 00:00:00 [facility] PPO/[employer]ER[employer] EMPL PPOxxxxxxxxxxx [id number] [id number] Problems Condition Condition Condition Status Onset Resolution Last Treating Co mments Source Name Details Category Date Date Treatment Clinician Date Family Family Disease Active [facility] history of history of 2-05 Me thodi thyroid thyroid 00:00: st cancer cancer 00 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 Harjinder rooney mellitus mellitus [facility]- with with on hyperglyce hyperglyce ozempic leyla, leyla, and without without farxiga- long-term long-term seeing current current use of use of [facility] insulin insulin next week 0- A1c last was 8.0% Essential Essential Disease Active Overview: [facility] hypertensi hypertensi on lotrel Methodi on on and st amlodipin e- Sees Cardiolog y - Dr. Vergara - does yearly checks: has had stress, echo, and vascular test done Esophageal Esophageal Disease Active Overview : [facility] stricture stricture Dr. Rosales Carpio ethalla - EGD - st Dyslipidem Dyslipidem Disease Active Overview : [facility] ia ia Worsened Methodi RLS; not st on meds because he states he doesn't like it; per and patient the cholester ol levels were elevated and was Rx meds but he didn't take it. Restless Restless Disease Active Overview: Martin vega leg leg on Methodi syndrome syndrome mirapex st and gabapenti n - doesn't like the gabapenti n because of the way he feels in the AM. 12/2019- stopped the gabapenti n and mirapex bc it is making him droggy Sleep Sleep Disease Active Overview: Re esteban apnea, apnea, not using Methodi obstructiv obstructiv CPAP; st e e states he can't use itHad a home sleep study done Allergies, Adverse Reactions, Alerts This patient has no known allergies or adverse reactions. Family History Family Member Diagnosis Comments Start Date Stop Date Source Natural brother Diabetes [facility] M ethodist Natural father Cancer [facility] Me thodist Natural father Heart disease [facility] Natural sister Cancer [facility] Me thodist Natural sister Diabetes [facility] Me thodist Social History Social Habit Start Date Stop Date Quantity Comments Source Sex Assigned At [facility] Exposure to Not sure [facility] SARS-CoV-2 [facility] (event) Alcohol intake 2020-01-02 2020-01-02 Current drinker of Martin vega 00:00:00 00:00:00 alcohol (finding) Methodi st Alcohol Comment 2016-04-27 2016-04-27 ocassionally Landa 00:00:00 00:00:00 [facility] Smoking Status Start Date Stop Date Source Never smoker Landa Elmirais isabella Medications Ordered Filled Start Stop Current Ordering Indication Dosage Frequency Signature Comments Components Source Medication Medication Date Date Medication? Clinician (SIG) Name Name gabapentin 2019-0 2020- No Restless 300mg Take 300 Landa (NEURONTIN) 01-01 06- leg mg by Method i 300 mg 10:58: 00:00 syndrome mouth. As s t capsule 43 :00 needed pramipexole 2019-0 2020- No Restless .25mg [id number] Take 0.25 Landa (MIRAPEX) 01-01 06- leg [id number] mg by Me fitzpatrickodi 0.25 MG 10:58: 00:00 syndrome [address] mouth 3 [address] tablet 23 :00 (three) times a day. dapaglifloz 2020-0 Yes 10mg QD Take 10 mg Landa in 01-01 by mouth Methodi (FARXIGA) 10:38: daily. st 10 mg 32 tablet NON 2020-0 Yes QD daily. [facility] FORMULARY 01-01 Mens alive Meth alla 10:38: st 32 ASCORBATE 2020-0 Yes Take by All on CALCIUM 6-03 mouth. Methodi (VITAMIN C 10:38: st ORAL) 32 ERGOCALCIFE 2019-0 Yes Take by Jillian morris ROL, 6-03 mouth. Methodi VITAMIN D2, 10:38: st (VITAMIN D2 32 ORAL) tamsulosin 2020-0 Yes .4mg QD Take 0.4 Jillian morris (FLOMAX) 6-03 mg by Methodi 0.4 mg 10:38: mouth st capsule 32 daily. levothyroxi 2020-0 Yes 150ug QD Take 150 [place] 6-03 mcg by Methodi (SYNTHROID, 10:38: mouth st LEVOXYL) 32 daily. 150 mcg tablet calcium 2020-0 Yes Other Take by Re esteban cit/Mgox/vi 6-03 fatigue mouth. Met henri mason D3/B6/min 10:38: st (CALCIUM-MA 32 G-VIT B6-D3-ENVIRONMENTAL SCIENCE TECHNICIAN ALS ORAL) ACETAMINOPH 2019-0 2020- No Take by Martin MAYA (TYLENOL 01-01 06-03 mouth. Metho di ORAL) 10:38: 00:00 st 32 :00 testosteron 2019- No Other 50mg QD Place 50 Vance e 01-01 fatigue mg on the Method i (ANDROGEL) 10:38: 00:[address] 1 % (25 27 :00 daily. mg/2.5gram) gel in packet DULAGLUTIDE 2019- No Q7D Inject Jillian morris (TRULICITY 09-05 under the Met henri SUBQ) 08:00: 00:[address] 04 :00 a week. SAW 2018- No Take by Vance PALMETTO 01-09 06- mouth. Methodi XTR/ZINC 14:57: 00:00 st PICOLIN 55 :00 ([facility] EXTRACT, W-ZINC, ORAL) OZEMPIC No 0.5 MG [place] 0.25 mg or 12-20 DIRECTED Meth alla 0.5 mg(2 00:00: 00:[address] mg/1.5 mL) 00 :00 SUBCUTANEO pen US 30 DAYS injector amlodipine- Yes 1{capsu QD Take 1 [place] benazepril 7-14 le} capsule by Met álvarez (LOTREL) 00:00: mouth once st 10-20 mg 00 daily. per capsule metoprolol Yes 200mg QD Take 200 [place] succinate 7-14 mg by Methodi XL 00:00: mouth once st (TOPROL-XL) 00 daily. 200 MG 24 hr tablet hydrochloro No 12.5mg QD Take 12.5 Landa thiazide 7-14 06-11 mg by Methodi (MICROZIDE) 00:00: 00:[address] 12.5 mg 00 :00 daily. capsule Immunizations Ordered Immunization Filled Immunization Date Status Commen ts Source Name Name Td 2019-12-31 Completed [facility] 00:00:00 [facility] Vital Signs Vital Name Observation Time Observation Value Comments Source Systolic blood 2020-01-02 10:35:00 126 mm[Hg] Rogerto n [facility] pressure Diastolic blood 2020-01-02 10:35:00 85 mm[Hg] [place] on [facility] pressure Heart rate 2020-01-02 10:35:00 64 /min [facility] Body temperature 2020-01-02 10:35:00 37.11 Ceci [place] [facility] Respiratory rate 2020-01-02 10:35:00 18 /min Roger dotson [facility] Body height 2020-01-02 10:35:00 177.8 cm Cordell Kuist Body weight 2020-01-02 10:35:00 100.245 kg Cordell Kuist BMI 2020-01-02 10:35:00 31.71 kg/m2 Cordell Brown Oxygen saturation in 2020-01-02 10:35:00 97 /min Cordell Brown Arterial blood by Pulse oximetry Procedures Procedure Date / Time Performed Performing Clinician Shonan CHAUDHRY BIOREF (NCOVB) 2019-11-13 13:52:00 Alejandra Castellano RESPIRATORY PATHOGEN 2019-11-13 13:52:00 Alejandra Castellano PANEL Plan of Care Planned Activity Planned Date Details Comments Source Future Scheduled 2026-01-09 COLONOSCOPY SCREENING [place] [facility] Test 00:00:00 [code = COLONOSCOPY SCREENING] Future Scheduled 2021-07-01 DIABETIC RETINAL EYE Jillian ston [facility] Test 00:00:00 EXAM [code = DIABETIC RETINAL EYE EXAM] Future Scheduled 2020-10-30 DIABETIC FOOT EXAM [place] [facility] Test 00:00:00 [code = DIABETIC FOOT EXAM] Future Scheduled 2020-03-01 INFLUENZA VACCINE [place] [facility] Test 00:00:00 [code = INFLUENZA VACCINE] Future Scheduled 2005 SHINGLES VACCINES (#1) [place] [facility] Test 00:00:00 [code = SHINGLES VACCINES (#1)] Future Scheduled 1965 URINE MICROALBUMIN [place] [facility] Test 00:00:00 [code = URINE MICROALBUMIN] Encounters Start End Encounter Admission Attending Care Care Encounter Source Date/Time Date/Time Type Type Clinicians Facility Department ID 2020-01-02 2020-01-02 Outpatient NITA [facility] [id number] V[facility] 00:00:00 00:00:00 ALEJANDRA [address] 2019-12-05 2019-12-05 Outpatient STEVEN [facility] [id number] [facility]ance 00:00:00 00:00:00 ELVER [address] 2019-11-13 2019-11-13 Outpatient [facility]ITA [facility] [id number] [facility]ance 00:00:00 00:00:00 ALEJANDRA [address] 2019-11-13 2019-11-13 Outpatient [facility]ITA [facility] [id number] Vance 00:00:00 00:00:00 ALEJANDRA [address] Results This patient has no known results.
--- OUTSIDE RECORDS SUMMARY | 2020-01-05 11:02 | XMS REPORT | Clinical Summary ---
:1955 Author Organization [facility] Address [address] [place] [address] Care Team Providers Name Role Phone Palmer [...] 0 Active VITAMIN D2, (VITAMIN D2 ORAL) tamsulosin (FLOMAX) Take 0.4 mg by 0 Active 0.4 mg capsule mouth daily. levothyroxine Take 150 mcg by 0 Active (SYNTHROID, LEVOXYL) mouth daily. 150 mcg tablet calcium cit/Mgox/vit Take by mouth. 0 Active D3/B6/min ([id number] C3-I2-WGHBCOAN ORAL)Indications: Other fatigue hydrochlorothiazide Take 12.5 mg by 2 02/12/2012/30 1/2 Discontinued (MICROZIDE) 12.5 mg mouth once 16 019 (Med List capsule daily. Cleanup) DULAGLUTIDE (TRULICITY Inject under 0 52 Discontinued SUBQ) the skin once a 020 week. SAW PALMETTO XTR/ZINC Take by mouth. 0 06/02 Discontinued PICOLIN (SAW PALMETTO 019 (Med List EXTRACT, W-ZINC, ORAL) Cleanup) ACETAMINOPHEN (TYLENOL Take by mouth. 0 Discontinued ORAL) 020 (Therapy completed) OZEMPIC 0.25 mg or 0.5 0.5 MG 4 12/21/19 Discontinued mg(2 mg/1.5 mL) pen DIRECTED WEEKLY 19 (Therapy injector SUBCUTANEOUS 30 comp leted) DAYS gabapentin (NEURONTIN) Take 300 mg by 0 Discontinued 300 mg mouth. As 020 capsuleIndications: needed Restless leg syndrome pramipexole (MIRAPEX) Take 0.25 mg by 0 Discontinued 0.25 MG mouth 3 (three) 020 tabletIndications: times a day. Restless leg syndrome testosterone Place 50 mg on 0 Di scontinued (ANDROGEL) 1 % (25 the skin daily. 020 (Therapy mg/2.5gram) gel in c ompleted) packetIndications: Other fatigue Active Problems Problem Noted Date Family history [...] farxiga - seeing Dr. Rios next week 12/2019 - A1c last was 8.0% Essential hypertension Overview: on lotrel and amlodipine [...] the way he feels in the AM. 12/2019 - stopped the gabapentin and mirapex bc it is making him droggy Sleep apnea, obstructive Overview: not using CPAP; states he can't use it Had a home sleep study done Encounters Date Type Specialty Care Team Description 01/02/2020 Office Visit Internal Medicine Beba Castellano Annual p hysical exam (Primary Dx); MD Palmer Type 2 diabetes mellitus with hyperglycemia, without long-term current use of insulin (HCC); Essential hyper tension; Screening for s kin cancer; Screening for p rostate cancer 01/02/2020 Travel 12/05/2019 Telemedicine Gastroenterology Yang Harris, Marko agsocorro, unspecified MD type (Primary D x) 12/03/2019 Travel 11/20/2019 Telephone Lab Diane Melvin MA 11/13/2019 Telemedicine Internal Medicine Beba Castellano Suspecte [...] 01/09/2019 Office Visit Family Medicine Delia Cade (Primary Dx); Michele Villa, Family his tory of thyroid cancer DO after 01/04/2019 Immunizations Name Administration Dates Next Due Td 12/31/2019 Family History Medical History Relation Name Comments Diabetes Brother Cancer Father Heart disease Father Cancer Sister Diabetes Sister Relation Name Status Comments Brother Alive Father (Age 87) Maternal Grandfather Maternal Grandmother Mother Paternal Grandfather Paternal Grandmother Sister Social History Tobacco Use Types Packs/Day Years Used Date Never Smoker Smokeless Tobacco: Never Used Tobacco Cessation: Counseling Given: Yes Alcohol Use Drinks/Week oz/Week Comments Yes ocassionally Sex Assigned at Date Recorded Not on file Job Start Date Occupation Industry Not on file Not on file Not on file Travel History Travel Start Travel End No recent travel history available. COVID-19 Exposure Response Date Recorded In the last month, have you been in contact with No / Unsure 01/02/2020 9:55 AM CDT someone who was confirmed or suspected to have Coronavirus / COVID-19? Last Filed Vital Signs Vital Sign Reading Time Taken Comments Blood Pressure 126/85 01/02/2020 10:35 AM CDT Pulse 64 01/02/2020 10:35 AM CDT Temperature 37.1 C (98.8 F) 01/02/2020 10:35 AM CDT Respiratory Rate 18 01/02/2020 10:35 AM CDT Oxygen Saturation 97% 01/02/2020 10:35 AM CDT Inhaled Oxygen Concentration - - Weight 100 kg (221 lb) 01/02/2020 10:35 AM CDT Height 177.8 cm (5' 10") 01/02/2020 10:35 AM CDT Body Mass Index 31.71 01/02/2020 10:35 AM CDT Plan of Treatment Date Type Specialty Care Team Description 08/08/2020 Office Visit Internal Medicine Beba Castellano MD [address] 86 84 Health Maintenance Due Date Last Done Comments URINE MICROALBUMIN 1965 SHINGLES VACCINES (#1) 2005 INFLUENZA VACCINE 03/01/2020 DIABETIC FOOT EXAM 10/30/2020 10/31/2019, 10/31/2019 DIABETIC RETINAL EYE EXAM 07/01/2021 07/01/2019 COLONOSCOPY SCREENING 01/09/2026 01/10/2016 Procedures Procedure Name Priority Date/Time Associated Comments Diagnosis RESPIRATORY PATHOGEN Routine 11/13/2019 1:52 Other general Re sults for this PANEL PM CDT symptoms and signs procedure are in the results section. COVID BIOREF (NCOVB) Routine 11/13/2019 1:52 Suspected Covid- 19 Results for this PM CDT Virus Infection procedure ar e in the results section. after 01/04/2019 Results Respiratory pathogen panel (11/13/2019 1:52 PM CDT) [facility] Adenovirus PCR Not Detected [place] Comment: MU-ISM Specimen Information HOSPITAL Specimen Source: Nares Specimen Site: Not specified Coronavirus HKU1 PCR Not Detected [facility] Coronavirus NL63 PCR Not Detected [facility] Coronavirus 229E PCR Not Detected [facility] Coronavirus OC43 PCR Not Detected [facility] Human metapneumovirus Not Detected [facility] Human Not Detected [place] rhinovirus/enterovirus [facility] Influenza A PCR Not Detected [facility] Influenza A/H1 PCR Not Reported [facility] Influenza A/H3 PCR Not Reported [facility] Influenza A/H1-2009 PCR Not Reported [facility] Influenza B PCR Not Detected [facility] Parainfluenza virus 1 Not Detected [facility] Parainfluenza virus 2 Not Detected [facility] Parainfluenza virus 3 Not Detected [facility] Parainfluenza virus 4 Not Detected [facility] Respiratory syncytial Not Detected [place] virus PCR [facility] Bordetella pertussis Not Detected [place] PCR [facility] Bordetella Not Detected [place] parapertussis PCR [facility] Chlamydia pneumoniae Not Detected [place] PCR [facility] Mycoplasma pneumoniae Not Detected [place] PCR [facility] Influenza A no sub type Not Reported [facility] Specimen Nares - Not specified Performing Organization Address City/State/Zipcode Phone Number [facility] DEPARTMENT OF PATHOLOGY AND [address] [place] [address] [phone] GENOMIC MEDICINE [address] [address] COVID BioRef (NCOVB) (11/13/2019 1:52 PM CDT) [facility] COVID BioRef Not Detected Not Detected [place] ([facility]) Comment: Source Nasopharyngeal Swab Testing performed at [facility] [address] [place] [id number] NOTE: Please consider re-collection of a new specimen, if clinically indicated. NOTE: The COVID-19 assay has been cleared by the U.S. Food and Drug Administration under the Emergency Use Author ization (EUA). [facility] is designated as a high complexity laboratory by the Clinical Laboratory Improve ment Amendments of 1988(CLIA) and is qualified to perform this t est. 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
--- NOTE | 2020-01-05 11:48 | ER ---
Nurse's Notes [facility] Name: Juan Cruz Age: 64 yrs Sex: Male : 1955 Arrival Date: 01/05/2020 Time: 11:02 Bed 12 Private MD: None, None Diagnosis: Encounter for removal of sutures Presentation: 01/04 11:32 Chief complaint: Patient states: Here to have sutures removed from R index finger. ss Coronavirus screen: Proceed with normal triage. Patient denies a cough. Patient denies shortness of breath or difficulty breathing. Patient denies measured and/or subjective temperature greater than 100.4F prior to today's visit. Patient denies travel on a cruise ship or to a country the [facility] currently lists as an affected area. Patient denies contact with known and/or suspected case of COVID-19. Ebola Screen: Patient denies exposure to infectious person. Patient denies travel to an Ebola-affected area in the 21 days before illness onset. Initial Sepsis Screen: Does the patient meet any 2 criteria? No. Patient's initial sepsis screen is negative. Does the patient have a suspected source of infection? No. Patient's initial sepsis screen is negative. Risk Assessment: Do you want to hurt yourself or someone else? Patient reports no desire to harm self or others. Onset of symptoms was November 2019. 11:32 Method Of Arrival: Ambulatory ss 11:32 Acuity: ALEXANDER 5 ss Historical: - Allergies: 11:35 No Known Allergies; ss - Immunization history:: Adult Immunizations up to date. - Social history:: Smoking status: Patient denies any tobacco usage or history of. Screenin:32 Abuse screen: Denies threats or abuse. Denies injuries from another. Nutritional ss screening: No deficits noted. Tuberculosis screening: Never had TB. Assessment: 11:32 General: Appears in no apparent distress. comfortable, Behavior is calm, cooperative. ss Pain: Denies pain. Neuro: Level of Consciousness is awake, alert, obeys commands, Oriented to person, place, time, situation. Cardiovascular: Capillary refill < 3 seconds is brisk in bilateral fingers. Respiratory: Airway is patent Respiratory effort is even, unlabored, Respiratory pattern is regular, symmetrical. GI: No deficits noted. No signs and/or symptoms were reported involving the gastrointestinal system. EENT: Nares are clear Oral mucosa is moist. Throat is clear. Derm: Skin is intact, is healthy with good turgor, Skin is pink, warm \T\ dry. normal. Musculoskeletal: Circulation, motion, and sensation intact. Range of motion: intact in all extremities, Swelling absent. Vital Signs: 11:32 BP 152 / 98; Pulse 78; Resp 17; Temp 97.0(TE); Pulse Ox 100% on R/A; Pain 0/10; ss ED Course: 11:02 Patient arrived in ED. dp 11:02 None, None is Private Physician. dp 11:32 Patient has correct armband on for positive identification. Bed in low position. Call ss light in reach. 11:35 Triage completed. ss 11:35 Arm band placed on right wrist. ss 11:36 Zachary Osborne NP is PHCP. pm1 11:36 Saud Mckay MD is Attending Physician. pm1 11:54 Nuvia Cruz RN is Primary Nurse. ss 11:54 No provider procedures requiring assistance completed. Patient did not have IV access ss during this emergency room visit. Administered Medications: No medications were administered Outcome: 11:48 Discharge ordered by . pm1 11:54 Discharged to home ambulatory. ss 11:54 Condition: good 11:54 Discharge instructions given to patient, Instructed on discharge instructions, follow up and referral plans. Demonstrated understanding of instructions, follow-up care. 11:54 Patient left the ED. ss Signatures: Nuvia Cruz RN RN Zachary Osborne NP [employer] OPERATOR pm1 Hola Meléndez dp
--- NOTE | 2020-01-05 11:48 | EDPHYS ---
Physician Documentation [facility] Name: Juan Cruz Age: 64 yrs Sex: Male : 1955 Arrival Date: 01/05/2020 Time: 11:02 Bed 12 Private MD: None, None ED Physician Saud Mckay HPI: 01/04 11:50 This 64 yrs old Male presents to ER via Ambulatory with complaints of Suture pm1 Removal. 11:50 The patient has sutures on the palmar aspect of distal phalanx of right index finger. pm1 Previous treatment: the care was rendered at [facility], Treatment type: The patient's original treatment included sutures. Sutures/gema progress: The patient has no c/o's. The wound is well-healing with no redness, swelling, discharge, or dehiscence reported. The patient has not experienced similar symptoms in the past. Historical: - Allergies: 11:35 No Known Allergies; ss - Immunization history:: Adult Immunizations up to date. - Social history:: Smoking status: Patient denies any tobacco usage or history of. ROS: 11:50 Constitutional: Negative for fever, chills, and weight loss, MS/Extremity: Negative for pm1 injury and deformity, Skin: Negative for injury, rash, and discoloration, Neuro: Negative for headache, weakness, numbness, tingling, and seizure. 11:50 All other systems are negative. Exam: 11:50 Constitutional: This is a well developed, well nourished patient who is awake, alert, pm1 and in no acute distress. Head/Face: Normocephalic, atraumatic. 11:50 Musculoskeletal/extremity: Extremities: all appear grossly normal, with no appreciated pain with palpation. 11:50 Skin: Wound recheck: Suture laceration closure: the wound is healing well, the edges are well approximated, no evidence of dehiscence, no drainage, no erythema, no swelling. 11:50 Neuro: Exam negative for acute changes, Orientation: is normal, Mentation: is normal, Motor: is normal, moves all fours, Sensation: is normal, no obvious gross deficits, Gait: is steady, at a normal pace, without difficulty. Vital Signs: 11:32 BP 152 / 98; Pulse 78; Resp 17; Temp 97.0(TE); Pulse Ox 100% on R/A; Pain 0/10; ss Procedures: 11:50 Suture/Staple removal: Removed 4 sutures, from palmar aspect of distal phalanx of right pm1 index finger, site appears well healed, Patient tolerated well. MDM: 11:47 Data reviewed: vital signs. Data interpreted: Pulse oximetry: on room air is 100 %. pm1 Interpretation: normal. Counseling: I had a detailed discussion with the patient and/or guardian regarding: the historical points, exam findings, and any diagnostic results supporting the discharge/admit diagnosis, to return to the emergency department if symptoms worsen or persist or if there are any questions or concerns that arise at home. 11:48 Patient medically screened. pm1 [id number] 11:50 Order name: Suture Removal; Complete Time: 11:54 pm1 Administered Medications: No medications were administered Disposition: 16:11 Co-signature as Attending Physician, Saud Mckay MD. rn Disposition: 01/05/20 11:48 Discharged to Home. Impression: Encounter for removal of sutures. - Condition is Stable. - Discharge Instructions: Suture Removal, Care After. - Medication Reconciliation Form, Thank You Letter, Antibiotic Education, Prescription Opioid Use form. - Follow up: Emergency Department; When: As needed; Reason: Worsening of condition. Follow up: Private Physician; When: As needed; Reason: Recheck today's complaints, Continuance of care, Re-evaluation by your physician. - Problem is new. - Symptoms have improved. Signatures: Saud Mckay MD MD rn Smirch, Shelby, RN RN ss Marinas, Patrick, NP TABLE KEEPER pm1 Corrections: (The following items were deleted from the chart) 11:54 11:48 01/05/2020 11:48 Discharged to Home. Impression: Encounter for removal of ss sutures. Condition is Stable. Forms are Medication Reconciliation Form, Thank You Letter, Antibiotic Education, Prescription Opioid Use. Follow up: Emergency Department; When: As needed; Reason: Worsening of condition. Follow up: Private Physician; When: As needed; Reason: Recheck today's complaints, Continuance of care, Re-evaluation by your physician. Problem is new. Symptoms have improved. pm1
[2020-01-05 12:02] VITALS: BP 152/98; TEMP 97; O2SAT 100
== END 2020-01-05 11:54 | disposition home or self-care (01) ==
LOC: ER 10:59
DX: Z48.02 Encounter for removal of sutures (principal)
CPT/HCPCS: 99281